=== PATIENT | female | born 1955 | race Caucasian/White ===

== ENCOUNTER 2018-07-03 10:21 | Outpatient (CLI) | payer OTHER ==
[~2018-07-03 10:21] MED LIST: KETO10TA2 PO; LEVSIN/SL0.125 MG SL; VISTARIL25 MG PO; ZYRTEC10 M3 PO
== END 2018-07-03 10:31 | disposition home or self-care (01) ==
LOC: RAD 10:21
DX: M25.552 Pain in left hip (principal); M16.0 Bilateral primary osteoarthritis of hip; M54.2 Cervicalgia

== ENCOUNTER 2019-10-31 15:54 | Emergency (ER) | payer OTHER ==
[~2019-10-31] VITALS: Ht 162.6 cm; Wt 58.1 kg
== END 2019-10-31 23:54 | disposition home or self-care (01) ==
LOC: ER 15:54
DX: R10.84 Generalized abdominal pain (principal); R11.2 Nausea with vomiting, unspecified

== ENCOUNTER 2019-11-01 15:30 | Inpatient (IN) | payer OTHER ==
[~2019-11-01] VITALS: Ht 152.4 cm; Wt 58.1 kg
[2019-11-12] MEDS ORDERED: GAS-X125 MG PO (07:45)
[2019-11-12] MEDS ORDERED: LEVSIN/SL0.125 MG SL (07:46)
[2019-11-12] MEDS ORDERED: INTESTINEX680 M1 PO (07:47)
== END 2019-11-12 11:31 | disposition home or self-care (01) | DRG 336 ==
LOC: ER 15:30 → SURH 17:35 → SEC-K 17:35 → SURH 18:18
PROVIDERS: ADMIT Surgery; ATTEND Surgery
PROC: 0D9770Z Drainage of Stomach, Pylorus with Drainage Device, Via Natural or Artificial Opening (ICD-10-PCS; 2019-11-01)
PROC: 3E0436Z Introduction of Nutritional Substance into Central Vein, Percutaneous Approach (ICD-10-PCS; 2019-11-01)
PROC: 02HV33Z Insertion of Infusion Device into Superior Vena Cava, Percutaneous Approach (ICD-10-PCS; 2019-11-05)
PROC: 0DNW0ZZ Release Peritoneum, Open Approach (ICD-10-PCS; principal; 2019-11-05 11:00)
PROC: 0DJW4ZZ Inspection of Peritoneum, Percutaneous Endoscopic Approach (ICD-10-PCS; 2019-11-05 11:00)
DX: K56.51 Intestinal adhesions [bands], with partial obstruction (principal); N39.0 Urinary tract infection, site not specified; T80.1XXA Vascular complications following infusion, transfusion and therapeutic injection, initial encounter; E86.0 Dehydration; I80.8 Phlebitis and thrombophlebitis of other sites; Z20.828 Contact with and (suspected) exposure to other viral communicable diseases; I11.9 Hypertensive heart disease without heart failure

== ENCOUNTER 2019-11-19 16:09 | Outpatient (CLI) | payer OTHER ==
[~2019-11-19 16:09] MED LIST changes: +GAS-X125 MG PO; +INTESTINEX680 M1 PO
== END 2019-11-19 16:17 | disposition home or self-care (01) ==
LOC: RAD 16:09
PROVIDERS: ATTEND Surgery
DX: E84.19 Cystic fibrosis with other intestinal manifestations (principal)

== ENCOUNTER 2019-11-19 16:49 | Outpatient (CLI) | payer OTHER | END 2019-11-19 16:58 | disposition home or self-care (01) | LOC: LAB 16:49 | PROVIDERS: ATTEND Surgery | DX: K56.690 Other partial intestinal obstruction (principal) ==

== ENCOUNTER 2020-11-10 10:38 | Outpatient (CLI) | payer OTHER | END 2020-11-10 10:49 | disposition home or self-care (01) | LOC: TOM 10:38 | PROVIDERS: ATTEND Surgery | DX: K42.9 Umbilical hernia without obstruction or gangrene (principal); K59.09 Other constipation; Q44.6 Cystic disease of liver; M51.36 Other intervertebral disc degeneration, lumbar region ==

== ENCOUNTER 2022-09-12 09:52 | Outpatient (CLI) | payer OTHER | END 2022-09-12 10:07 | disposition home or self-care (01) | LOC: RAD 09:52 | PROVIDERS: ATTEND Surgery | DX: K56.50 Intestinal adhesions [bands], unspecified as to partial versus complete obstruction (principal); K64.5 Perianal venous thrombosis; K62.5 Hemorrhage of anus and rectum; K57.30 Diverticulosis of large intestine without perforation or abscess without bleeding; M54.16 Radiculopathy, lumbar region; M48.061 Spinal stenosis, lumbar region without neurogenic claudication ==

== ENCOUNTER 2022-09-18 06:02 | Day surgery (SDC) | payer OTHER ==
[~2022-09-18] VITALS: Ht 162.6 cm; Wt 57.2 kg
[2022-09-18] MEDS ORDERED: NEURONTIN300 MG PO (13:39)
[2022-09-18] MEDS ORDERED: PERCOCET 5-3251 EACH PO (13:39)
[2022-09-18] MEDS ORDERED: KETO10TA2 PO (13:40)
[2022-09-18] MEDS ORDERED: DERMOPLAST PAIN78 GM TOP (13:40)
== END 2022-09-18 15:15 | disposition home or self-care (01) ==
LOC: CIR.AMB 06:02
PROVIDERS: ATTEND Surgery
DX: K64.8 Other hemorrhoids (principal); K64.4 Residual hemorrhoidal skin tags; K60.1 Chronic anal fissure; K64.2 Third degree hemorrhoids; K56.50 Intestinal adhesions [bands], unspecified as to partial versus complete obstruction; K64.5 Perianal venous thrombosis; K62.5 Hemorrhage of anus and rectum; K57.30 Diverticulosis of large intestine without perforation or abscess without bleeding; Z20.822 Contact with and (suspected) exposure to COVID-19; I10 Essential (primary) hypertension